=== PATIENT | female | born 1995 | race Two or more races ===

== ENCOUNTER 2024-04-15 06:24 | Day surgery (SDC) | payer OTHER ==
[2024-04-11 10:45] LABS: HEMATOCRIT 37.8 % (36.0-45.00); HEMOGLOBIN 13.2 g/dL (12.0-15.00); MEAN CELL VOLUME 84.8 fL (80.00-100.00); MEAN CORPUSCULAR HEMOGLOBIN 29.8 pg (27.00-32.0); MEAN CORPUSCULAR HGB CONC 35.1 g/dl (32.0-36.0); PLATELET COUNT 235 K/uL (150-450); RED BLOOD COUNT 4.45 M/uL (4.00-6.00); RED CELL DISTRIBUTION WIDTH 12.7 % (11.5-14.5)
[2024-04-11 10:51] LABS: URINE APPEARANCE Cloudy; URINE BILIRRUBIN Negative (NEGATIVE); URINE BLOOD Negative; URINE COLOR Yellow; URINE GLUCOSE Negative (NEGATIVE); URINE KETONE Negative (NEGATIVE); URINE LEUKOCYTE Moderate; URINE NITRATE Negative; URINE PROTEIN Negative (NEGATIVE); URINE UROBILINOGEN 0.2 E.U./dl
[2024-04-11 10:55] LABS: URINE BACTERIA 1612.7 uL (0.0-1933); URINE EPITHELIAL CELLS 40.8 uL (0.0-38.8); URINE RBC 2.5 uL (0.0-20.8); URINE WBC 28.2 uL (0.0-23.2)
[2024-04-11 11:40] LABS: INR 1.02; PROTHROMBIN TIME 10.7 SECONDS (9.0-11.5)
[2024-04-11 11:48] LABS: BILIRUBIN TOTAL 0.46 mg/dL (0.3-1.2); CALCIUM 9.2 mg/dL (8.5-10.1); CREATININE SERUM 0.63 mg/dL (0.55-1.02); GFR 114.23; GLOBULINA 3.5 G/DL (2.4-3.5); POTASSIUM 4.25 mEq/L (3.5-5.1); TOTAL PROTEIN 7.5 gm/dL (6.4-8.2)
[~2024-04-15 06:24] MED LIST: BREZTRI AEROS10.7 GM IH
[2024-04-15] MEDS ORDERED: POVIDONE-IODINE 118 ML BOTT TOP ONE (19:15)
[2024-04-15] MEDS ORDERED: THROMBIN,HU/FIBRINOGEN/CALCIUM 4 ML SYRINGE TOP ONE (19:45)
[2024-04-15] MEDS ORDERED: OxyCODONE HCL/APAP UD (PERCOCET) PO PRN (20:15)
[2024-04-15] MEDS ORDERED: PROMETHAZINE HCL 50 MG/ML AMPUL IM PRN (20:45)
== END 2024-04-16 01:35 | disposition home or self-care (01) ==
LOC: CIR.AMB 06:24
PROVIDERS: ATTEND Obstetrics & Gynecology
DX: D06.9 Carcinoma in situ of cervix, unspecified (principal); Z88.0 Allergy status to penicillin; J45.909 Unspecified asthma, uncomplicated; K29.70 Gastritis, unspecified, without bleeding